=== PATIENT | female | born 2000 | race American Indian/Alaskan Native ===

== ENCOUNTER 2020-12-10 13:02 | Emergency (ER) | payer MEDICAID ==
[2020-12-10 14:03] VITALS: BP 141/92
--- NOTE | 2020-12-10 14:31 | Event Note ---
ED Screening Note ED Screening Note: n/v/d that began this morning states she has had 4 episodes of each denies any blood or pus in stool denies blood in vomit no abd pain no fever no urinary symptoms no recent travel no camping or water from different source no recent abx no pmhx no allergies to meds LNMP 11/23/2020 This initial assessment/diagnostic orders/clinical plan/treatment(s) is/are subject to change based on patients health status, clinical progression and re- assessment by fellow clinical providers in the ED. Further treatment and workup at subsequent clinical providers discretion. Patient/guardian urged not to elope from the ED as their condition may be serious if not clinically assessed and managed. Initial orders include: labs, urine
[2020-12-10 14:36] LABS: Hematocrit 40.2 % (30.3-42.9); Hemoglobin 14.1 gm/dl (10.1-14.3); Lymphocytes # (Auto) 0.8 K/mm3 (1.2-5.4); Lymphocytes % (Auto) 6.9 % (13.4-35.0); Mean Corpuscular HGB Conc 35 % (30-34); Mean Corpuscular Volume 90 fl (79-97); Monocytes # (Auto) 0.7 K/mm3 (0.0-0.8); Monocytes % (Auto) 5.9 % (0.0-7.3); Platelet Count 335 K/mm3 (140-440); Red Blood Count 4.48 M/mm3 (3.65-5.03); Red Cell Distribution Width 12.7 % (13.2-15.2)
[2020-12-10 14:39] LABS: Bilirubin,Urine NEG (Negative); Blood,Urine NEG (Negative); Color,Urine Yellow (Yellow); Mucus,Urine 1+ /HPF; Urobilinogen,Urine < 2.0 mg/dL (<2.0); WBC,Urine < 1.0 /HPF (0.0-6.0)
[2020-12-10 14:49] LABS: HCG Qualitative,Urine Negative (Negative)
[2020-12-10 14:52] LABS: Alanine Aminotransferase 8 units/L (7-56); Albumin 4.8 g/dL (3.9-5); Blood Urea Nitrogen 7 mg/dL (7-17); Calcium 9.4 mg/dL (8.4-10.2); Hemolysis Index 8
[2020-12-10 14:54] LABS: BUN/Creatinine Ratio 14
[2020-12-10] MEDS ORDERED: ONDANSETRON 4 MG/2 ML INJ IV ONE (14:58)
[2020-12-10] MEDS ORDERED: SODIUM CHLORIDE 0.9% 1000 ML 1,000 ML IV ONE (14:58)
--- NOTE | 2020-12-10 15:00 | Emergency Department Report ---
ED General Adult HPI - General Chief complaint: Nausea/Vomiting/Diarrhea Stated complaint: VOMITING, DIARRHEA Time Seen by Provider: 12/10/20 14:29 Source: patient Mode of arrival: Ambulatory Limitations: No Limitations - History of Present Illness Initial comments: 20-year-old female patient presents to the emergency department with complaints of nausea, vomiting, and diarrhea starting this morning. Patient states she has experienced approximately 6 episodes of nonbloody emesis and 5 episodes of nonbloody diarrhea since onset of symptoms. No recent travel. No known sick contacts. No current steroid or antibiotic use. Last menstrual cycle was less than 2 weeks ago. Denies fever, chills, abdominal pain, pelvic pain, vaginal bleeding, vaginal discharge, urinary symptoms. Denies all other complaints at this time. - Related Data Previous Rx's Medication Instructions Recorded Last Taken Type Ondansetron [Zofran Odt] 4 mg PO Q4H PRN #30 tab.rapdis 12/10/20 Unknown Rx Allergies Allergy/AdvReac Type Severity Reaction Status Date / Time No Known Allergies Allergy Unverified 12/10/20 13:57 ED Review of Systems ROS: Stated complaint: VOMITING, DIARRHEA Other details as noted in HPI Other: GENERAL: Negative for fever, chills, weight change, anorexia, fatigue. ENT: Negative for ear pain, difficulty hearing, sore throat, nasal congestion, epistaxis. CARDIOVASCULAR: Negative for chest pain, palpitations, lower extremity swelling. PULMONARY: Negative for cough, dyspnea, wheezing, orthopnea, cyanosis. GASTROINTESTINAL: Positive for nausea, vomiting, diarrhea. MUSCULOSKELETAL: Negative for joint pain, joint swelling, myalgias, back pain, neck pain. NEUROLOGICAL: Negative for headache, seizure, syncope, paresthesias, weakness. INTEGUMENTARY: Negative for erythema, rash, diaphoresis, laceration, ecchymosis. HEMATOLOGICAL: Negative for hemoptysis, hematemesis, hematochezia, hematuria. PSYCHIATRIC: Negative for hallucinations, suicidal ideation, homicidal ideation, anxiety, depression. ED Past Medical Hx - Past Medical History Previous Medical History?: No - Surgical History Past Surgical History?: No - Social History Smoking Status: Never Smoker Substance Use Type: None - Medications Home Medications: Home Medications Medication Instructions Recorded Confirmed Last Taken Type Ondansetron [Zofran Odt] 4 mg PO Q4H PRN #30 tab.rapdis 12/10/20 Unknown Rx ED Physical Exam - General Limitations: No Limitations - Other Other exam information: General: Awake and alert. Appears uncomfortable. Head: Atraumatic, normocephalic. Eyes: EOMI. Pupils are equal and round. Normal sclera and conjunctiva. ENT: Oral mucosa is moist. Normal pharyngeal exam. Neck: Supple. No lymphadenopathy. Pulmonary: No respiratory distress. Clear to auscultation bilaterally. Cardiac: Tachycardic. Pulses are palpable and equal bilaterally. No lower extremity cyanosis or edema. Skin: Warm and dry. No rashes. Abdomen: Soft, non-tender, non-protuberant. No guarding, rigidity, or rebound. Bowel sounds are normal. No organomegaly or masses noted. McBurney's point is nontender. Baldwin sign is negative. Back: Normal alignment. No CVA tenderness. Extremities: Symmetrical. Full range of motion intact. Neurological: Alert and oriented, appropriately interactive, no focal deficits. Psych: Cooperative. Appropriate mood and affect. Speech is evenly metered. Thoughts are logically construed. ED Course Vital Signs 12/10/20 14:01 Temperature 99 F Pulse Rate 121 H Respiratory 20 Rate Blood Pressure 141/92 O2 Sat by Pulse 100 Oximetry ED Medical Decision Making - Lab Data Result diagrams: 12/10/20 14:13 12/10/20 14:13 - Medical Decision Making Differential diagnosis including but not limited to: appendicitis, cholecystitis, pancreatitis, ectopic , bowel obstruction, bowel perforation, dehydration, electrolyte abnormality, hypoglycemia, urinary tract infection, pyelonephritis On reevaluation, patient is stable and symptoms have improved. No further vomiting in the emergency department. Patient was administered 1 L of IV fluids and IV Zofran. States she is feeling much better. Tachycardia has resolved. Repeat heart rate is 92 bpm. Repeat abdominal exam is benign. Labs are unremarkable. Urinalysis within normal limits. test is negative. History and exam findings suggestive of viral illness; no clinical indication for further diagnostic work-up on an emergent basis at this time. Patient will be discharged home with appropriate symptomatic treatment and referred to primary care provider for close outpatient follow-up. Patient expressed understanding and is agreeable to plan of care. Disease transmission precautions discussed. Strict return precautions provided. Specifically, signs/symptoms of appendicitis were discussed with the patient, who agrees to return to the emergency department immediately should any of these occur. Repeat exam is unremarkable and benign. History, exam, diagnostic testing, and current condition do not suggest worrisome pathology to warrant further testing, continued ED treatment, admission, or surgical evaluation at this point. Given the low probability of a significant medical illness, it would be more likely to result in harm than benefit to perform further testing at this stage. Discussed findings, presumptive diagnosis, need for follow-up and specific signs/symptoms that should prompt immediate return to the emergency department. Instructions were explained in detail to the patient in addition to giving written discharge information. Patient expressed understanding and was given the opportunity to ask questions, all of which were satisfactorily answered prior to discharge home. Critical care attestation.: If time is entered above; I have spent that time in minutes in the direct care of this critically ill patient, excluding procedure time. ED Disposition Clinical Impression: Vomiting and diarrhea Disposition: TO HOME OR SELFCARE Is pt being admited?: No Does the pt Need Aspirin: No Condition: Stable Instructions: Diarrhea, Adult, Nausea and Vomiting, Adult Additional Instructions: Take Zofran as directed for nausea/vomiting. Rest. Drink plenty fluids. Wash hands frequently to prevent disease transmission. Do not share food or drinks with others. Gradual advance diet slowly as tolerated. Follow-up with primary care provider this week. Call tomorrow to schedule an appointment. See referral information below. Return to the emergency department immediately for new or worsening symptoms. Specifically, return to the emergency department immediately for fever, worsening vomiting, black/bloody stools, or if you develop pain to the right lower area of your abdomen. Prescriptions: Ondansetron [Zofran Odt] 4 mg PO Q4H PRN #30 tab.rapdis PRN Reason: Nausea Referrals: SARAH JUAN MD [Staff Physician] - 3-5 Days [facility] [Outside] - 3-5 Days [facility] [Outside] - 3-5 Days [facility] [Outside] - 3-5 Days [facility] [Provider Group] - 3-5 Days Forms: Work/School Release Form(ED) Time of Disposition: 16:01
== END 2020-12-10 16:31 | disposition home or self-care (01) ==
LOC: ED 13:02
DX: R19.7 Diarrhea, unspecified (principal); R11.10 Vomiting, unspecified; Z79.899 Other long term (current) drug therapy
CPT/HCPCS: 36415; 80053; 81001; 81025; 83690; 83735; 85025; 96361; 96374; 99283; J2405; J7030

== ENCOUNTER 2021-12-04 12:28 | Emergency (ER) | payer SELFPAY ==
[2021-12-04 13:28] VITALS: BP 118/68
[2021-12-04 18:09] LABS: Alanine Aminotransferase 7 units/L (7-56); Albumin 5.1 g/dL (3.9-5); Blood Urea Nitrogen 7 mg/dL (7-17); Calcium 9.7 mg/dL (8.4-10.2); Hemolysis Index 11
[2021-12-04 18:26] LABS: Bilirubin,Urine NEG (Negative); Blood,Urine SM (Negative); Color,Urine Yellow (Yellow); Protein,Urine <15 mg/dL mg/dL (Negative); Urobilinogen,Urine < 2.0 mg/dL (<2.0)
[2021-12-04 18:28] LABS: BUN/Creatinine Ratio 14
[2021-12-04 18:32] LABS: Mucus,Urine 1+ /HPF
[2021-12-04 18:33] LABS: Bacteria,Urine 1+ /HPF (Negative)
[2021-12-04 18:44] LABS: Hematocrit 42.3 % (30.3-42.9); Mean Corpuscular HGB Conc 33 % (30-34); Mean Corpuscular Volume 90 fl (79-97); Platelet Count 357 K/mm3 (140-440); Red Blood Count 4.68 M/mm3 (3.65-5.03); Red Cell Distribution Width 12.4 % (13.2-15.2)
--- NOTE | 2021-12-04 19:09 | XRay Report ---
XR chest routine 2V INDICATION / CLINICAL INFORMATION: weakness, sob COMPARISON: None available. FINDINGS: SUPPORT DEVICES: None. HEART / MEDIASTINUM: No significant abnormality. LUNGS / PLEURA: Lungs are clear. Costophrenic sulci are sharp. No pneumothorax. ADDITIONAL FINDINGS: No significant additional findings. IMPRESSION: 1. No acute findings. Signer Name: Saleem Cottrell MD Signed: 12/04/2021 7:05 PM Workstation Name: [id number]
--- NOTE | 2021-12-04 19:51 | Emergency Department Report ---
ED Shortness of Breath HPI - General Chief Complaint: Dyspnea/Respdistress Stated Complaint: SHORTNESS OF BREATH Time Seen by Provider: 12/04/21 15:57 Source: patient Mode of arrival: Ambulatory Limitations: No Limitations - History of Present Illness Initial Comments: 21-year-old black female with a past medical history of anemia presents to the emergency department for evaluation of 1 week history of shortness of breath and lightheadedness. He states that for the past year she has had persistent low iron for which she was taking [id number] iron supplements for, but states that the past week she has felt like she felt previously when her iron was very low. She states that she has had increasing shortness of breath lightheadedness and dizziness. She denies any bleeding and states that her last period was 2 weeks ago and was normal. She denies any abdominal pain, vaginal discharge, fever, or dysuria. MD Complaint: shortness of breath -: Gradual, week(s) (1) Pain Scale: 0 Treatments Prior to Arrival: oxygen - Related Data Home Oxygen Therapy: No Previous Rx's Medication Instructions Recorded Last Taken Type Ondansetron [Zofran Odt] 4 mg PO Q4H PRN #30 tab.rapdis 12/10/20 Unknown Rx Allergies Allergy/AdvReac Type Severity Reaction Status Date / Time No Known Allergies Allergy Verified 12/04/21 13:28 ED Review of Systems ROS: Stated complaint: SHORTNESS OF BREATH Other details as noted in HPI Comment: All other systems reviewed and negative Constitutional: denies: chills, fever Respiratory: shortness of breath. denies: SOB with exertion, SOB at rest, stridor, wheezing Cardiovascular: denies: chest pain, palpitations Gastrointestinal: denies: abdominal pain, nausea, vomiting Musculoskeletal: denies: back pain Neurological: vertigo. denies: headache, weakness Hematological/Lymphatic: denies: easy bleeding, easy bruising ED Past Medical Hx - Past Medical History Previous Medical History?: No - Surgical History Past Surgical History?: No - Social History Smoking Status: Never Smoker Substance Use Type: None - Medications Home Medications: Home Medications Medication Instructions Recorded Confirmed Last Taken Type Ondansetron [Zofran Odt] 4 mg PO Q4H PRN #30 tab.rapdis 12/10/20 Unknown Rx ED Physical Exam - General Limitations: No Limitations General appearance: alert, in no apparent distress - Head Head exam: Present: atraumatic, normocephalic - Eye Eye exam: Present: normal appearance. Absent: conjunctival injection - ENT ENT exam: Present: normal exam, normal orophraynx - Neck Neck exam: Present: normal inspection, full ROM. Absent: tenderness, lymphadenopathy - Respiratory Respiratory exam: Present: normal lung sounds bilaterally. Absent: respiratory distress, wheezes, rales, rhonchi, stridor, chest wall tenderness - Cardiovascular Cardiovascular Exam: Present: tachycardia, normal heart sounds - GI/Abdominal GI/Abdominal exam: Present: soft, normal bowel sounds. Absent: distended, tenderness, guarding, rebound, rigid - Extremities Exam Extremities exam: Present: normal capillary refill. Absent: pedal edema, joint swelling, calf tenderness - Back Exam Back exam: Present: normal inspection. Absent: CVA tenderness (R), CVA tenderness (L), vertebral tenderness - Neurological Exam Neurological exam: Present: alert, oriented X3, normal gait - Psychiatric Psychiatric exam: Present: normal affect, normal mood - Skin Skin exam: Present: warm, dry, intact, normal color ED Course Vital Signs 12/04/21 13:25 Temperature 99.1 F Pulse Rate 103 H Respiratory 14 Rate Blood Pressure 118/68 O2 Sat by Pulse 99 Oximetry ED Medical Decision Making - Lab Data Result diagrams: 12/04/21 17:22 12/04/21 17:22 - Radiology Data Radiology results: report reviewed, image reviewed Chest x-ray: FINDINGS: SUPPORT DEVICES: None. HEART / MEDIASTINUM: No significant abnormality. LUNGS / PLEURA: Lungs are clear. Costophrenic sulci are sharp. No pneumot horax. ADDITIONAL FINDINGS: No significant additional findings. IMPRESSION: 1. No acute findings. - Medical Decision Making 21-year-old black female with a past medical history of anemia presents to the emergency department for evaluation of 1 week history of shortness of breath and lightheadedness. He states that for the past year she has had persistent low iron for which she was taking [id number] iron supplements for, but states that the past week she has felt like she felt previously when her iron was very low. She states that she has had increasing shortness of breath lightheadedness and dizziness. She denies any bleeding and states that her last period was 2 weeks ago and was normal. She denies any abdominal pain, vaginal discharge, fever, or dysuria. Physical exam unremarkable. CBC, CMP, quantitative hCG, and UA unremarkable. C hest x-ray without any acute abnormalities noted. Patient denies any complaints of at this time. Patient advised follow-up primary care provider for further evaluation and management. She is advised to return to the emergency department for any concerning symptoms. Critical care attestation.: If time is entered above; I have spent that time in minutes in the direct care of this critically ill patient, excluding procedure time. ED Disposition Clinical Impression: Shortness of breath, Weakness Disposition: 01 HOME / SELF CARE / HOMELESS Is pt being admited?: No Does the pt Need Aspirin: No Condition: Stable Instructions: Shortness of Breath, Adult, Wzne-bj-Nife, Weakness, [id number] Additional Instructions: Follow-up with your primary care provider for further evaluation and management. Return to the emergency department as needed. Referrals: SARAH JUAN MD [Primary Care Provider] - 3-5 Days Forms: Work/School Release Form(ED) Time of Disposition: 19:50
== END 2021-12-04 20:30 | disposition home or self-care (01) ==
LOC: ED 12:28
DX: R06.02 Shortness of breath (principal); R53.1 Weakness; R42 Dizziness and giddiness; Z79.899 Other long term (current) drug therapy
CPT/HCPCS: 36415; 71046; 80053; 81001; 84702; 85027; 87086; 99283